=== PATIENT | male | born 2000 | race Caucasian/White ===

== ENCOUNTER 2022-07-03 14:22 | Emergency (ER) | payer BC, MEDICAID ==
[~2022-07-03] VITALS: Ht 182.9 cm; Wt 104.0 kg
[~2022-07-03 14:22] MED LIST: HYDR-4383 PO
[2022-07-03 14:43] VITALS: BP 119/68
[2022-07-03] MEDS ORDERED: SULF1TAB45 PO (15:53)
== END 2022-07-03 16:00 | disposition home or self-care (01) ==
LOC: ER 14:22
DX: L02.412 Cutaneous abscess of left axilla (principal)
CPT/HCPCS: 10060; 99283; A6266; A6449